=== PATIENT | male | born 1975 | race African-American/Black ===

== ENCOUNTER 2016-06-30 11:37 | Day surgery (SDC) | payer BC ==
--- NOTE | ~2016-06-30 | OP ---
Record Of Operation [facility] [address] [place]. [address] NAME: KIRSTEN MCKEON : 79 STATUS : [facility]#: [id number] AGE: 40 ADM/REG DATE : 06/30/16 MR#: [id number] REPORT SERV DATE: 06/30/16 DICTATED BY: Tan JONAS DATE: 06/30/16 REPORT STATUS : Draft TRANSCRIBED BY: MODL DATE: 06/30/16 DATE OF PROCEDURE: 06/30/2016 PREOPERATIVE DIAGNOSIS: Gross hematuria. POSTOPERATIVE DIAGNOSIS: Gross hematuria. PROCEDURE: Cystoscopy, bilateral retrograde pyelography, examination under anesthesia. SURGEON: Tan Jonas M.D. ANESTHESIA: General with LMA. COMPLICATIONS: None. DRAINS: None. BRIEF HISTORY: Mr. Mckeon is a 40-year-old black male with a history of recurrent gross hematuria. He underwent a negative evaluation in 2010, that included bladder biopsies showing glandular metaplasia. Of note, his daughter has sickle cell trait but he had a negative, a normal hemoglobin electrophoresis in 2011. At any rate, he returned with complaints of recurrent gross painless hematuria [address] the abdomen and pelvis with and without contrast showed no abnormalities and his cytology was negative. He requested cystoscopy in the OR. The risks of bleeding, infection, anesthesia, injury to adjacent organs, need for biopsy, inability to define cause of hematuria, etc., were all discussed. There were no unanswered questions. DESCRIPTION OF PROCEDURE: Under excellent general anesthesia, the patient was prepped and draped in the standard lithotomy position. Digital exam revealed a 1+ symmetric smooth prostate gland. He had a normal appearing circumcised penis. Cystoscopy was performed with 30- and 70-degree lenses, revealed a normal anterior urethra without stricture or other abnormality. Posterior urethra showed a small collar-type prostate gland without visible lesions. Inspection of the bladder revealed normal orifices bilaterally, effluxing clear urine with no tumor, stones, or foreign bodies. An 8-Brazilian cone-tipped catheter was used to perform a left retrograde pyelogram, it showed a normal caliber ureter without filling defect or obstruction and good drainage. Similarly the right ureter was normal without filling defect or obstruction and good drainage. The case was terminated. I plan to discharge Mr. Mckeon as an outpatient with the following instructions. DISCHARGE INSTRUCTIONS: 1. Home today. 2. Pyridium 200 mg one p.o. t.i.d. p.r.n. bladder pain #15. 3. It may be reasonable since that he sees a circular knitter helper to see if any further evaluation is indicated. I will leave that up to his PCP. I am happy to help facilitate that however if necessary. Record Of Operation [address] [place]. [address] NAME: KIRSETN MCKEON : 79 STATUS : [facility] [place] [id number] AGE: 40 ADM/REG DATE : 06/30/16 MR#: [id number] REPORT SERV DATE: 06/30/16 DICTATED BY: Tan JONAS DATE: 06/30/16 REPORT STATUS : Draft TRANSCRIBED BY: EDWAR DATE: 06/30/16 MIKE/EDWAR Tan Jonas M.D. / [id number] CC: Vidya Motley M.D.
[~2016-06-30 11:37] MED LIST: NO MEDS
== END 2016-06-30 17:09 | disposition home or self-care (01) ==
LOC: SDC 11:37
PROC: BT14ZZZ Fluoroscopy of Kidneys, Ureters and Bladder (ICD-10-PCS; principal; 2016-06-30 12:45)
DX: R31.0 Gross hematuria (principal); Z98.890 Other specified postprocedural states
CPT/HCPCS: 74420; C1758; C1769; J2250; J2405; J3010; Q9967